=== PATIENT | male | born 1940 | race Caucasian/White ===

== ENCOUNTER 2016-07-10 11:26 | Emergency (ER) | payer OTHER, BC ==
[~2016-07-10] VITALS: Ht 167.6 cm; Wt 88.6 kg
[~2016-07-10 11:26] MED LIST: Aspirin E.C. PO; Biotin PO; Calcium Carbonate,Ca PO; Cranberry Extract PO; Diovan PO; Flexeril PO; Omega III EPA + DHA PO; Red Yeast Rice PO; Theragran PO; Vicodin,Norco 5/325 PO; Vitamin B Complex PO; Zinc Gluconate PO
[2016-07-10 12:35] LABS: EOSINOPHIL (%) 0.8 % (0-5); EOSINOPHIL COUNT 0.1 K/uL (0-0.3); HEMATOCRIT 35.3 % (38.0-50.0); IMMATURE GRANULOCYTE (%) 0.6 % (0.0-0.7); IMMATURE GRANULOCYTE COUNT 0.1 K/uL; INSTRUMENT ABS NEUTROPHIL CT 7.4 K/uL; LYMPHOCYTE COUNT 1.2 K/uL (1.0-2.8); MCH 30.8 PG (29.0-34.0); MCV 90.5 FL (86-99); MEAN PLAT.VOLUME 8.4 uM^3 (9.0-12.4); MONOCYTE COUNT 0.2 K/uL (0-0.8); NEUTROPHIL COUNT 7.4 K/uL (1.8-6.4); PLATELET COUNT 260 K/uL (156-360); RBC DIS.WIDTH-CV 13.6 % (11.8-14.6); RBC DIS.WIDTH-SD 45.5 % (39-53); WHITE BLOOD COUNT 8.9 K/uL (4.1-10.2)
[2016-07-10 12:44] LABS: CHLORIDE 105 mEq/L (99-109); POTASSIUM 4.7 mEq/L (3.7-5.4); SODIUM 134 mEq/L (136-147)
[2016-07-10 12:45] LABS: GLUCOSE 95 mg/dL (70-99)
[2016-07-10 12:47] LABS: ANION GAP 6 MEQ/L (2-14)
[2016-07-10 12:49] LABS: GFR ESTIMATE (CALCULATED) > 59 mL/min/
[2016-07-10 12:50] LABS: UREA NITROGEN (BUN) 18 mg/dL (9-23)
[2016-07-10 12:56] LABS: TROP-I INTERPRETATION NEGATIVE; TROPONIN-I < 0.01 ng/mL (0.0-0.30)
[2016-07-10 13:38] LABS: ADD MIUA? YES; BILIRUBIN NEGATIVE; BLOOD NEGATIVE; COLOR AMBER ((YELLOW)); GLUCOSE (STRIP) NEGATIVE; KETONES NEGATIVE; LEUKOCYTES NEGATIVE; NITRITE NEGATIVE; PROTEIN (STRIP) NEGATIVE; SPECIFIC GRAVITY 1.016 (1.000-1.030)
[2016-07-10 14:00] LABS: BACTERIA NONE SEEN /HPF; EPITHELIAL CELLS NONE SEEN /HPF; HYALINE CASTS 0-5 /LPF; MUCUS TRACE /LPF; RED BLOOD CELLS 0-5 /HPF (0-5); UCUL ADDED? NO; WHITE BLOOD CELLS 0-5 /HPF (0-5)
[2016-07-10 14:45] VITALS: BP 138/79
== END 2016-07-10 14:46 | disposition home or self-care (01) ==
LOC: EME 11:26
PROVIDERS: Emergency Medicine
DX: R55 Syncope and collapse (principal); T40.4X5A Adverse effect of other synthetic narcotics, initial encounter; C34.90 Malignant neoplasm of unspecified part of unspecified bronchus or lung; I10 Essential (primary) hypertension; Z87.891 Personal history of nicotine dependence
CPT/HCPCS: 70450; 71020; 80048; 81003; 84484; 85025; 93005; 99281; 99285; J7030

== ENCOUNTER 2016-10-04 07:13 | Inpatient (IN) | payer OTHER, BC ==
[~2016-10-04] VITALS: Ht 170.2 cm; Wt 82.2 kg
[~2016-10-04 07:13] MED LIST changes: +ASPIR-LOW81 MG PO; -Aspirin E.C. PO; +B COMPLEX #11 EACH PO; +CALCIUM 600 +1 EA13 PO; +CRANBERRY500 M2 PO; -Calcium Carbonate,Ca PO; -Cranberry Extract PO; +MULTI VITAMIN1 EACH PO; +OMEGA III EPA1000 MG PO; -Omega III EPA + DHA PO; -Theragran PO; -Vitamin B Complex PO; +ZINC50 M1 PO; -Zinc Gluconate PO
[2016-10-04 07:56] LABS: HEMATOCRIT 27.5 % (38.0-50.0); MCH 32.9 PG (29.0-34.0); MCHC 34.5 G/DL (30.0-36.0); MCV 95.2 FL (86-99); MEAN PLAT.VOLUME 8.9 uM^3 (9.0-12.4); PLATELET COUNT 162 K/uL (156-360); RBC DIS.WIDTH-CV 17.6 % (11.8-14.6); RBC DIS.WIDTH-SD 61.4 % (39-53); RED BLOOD COUNT 2.89 M/uL (4.00-5.50); WHITE BLOOD COUNT 1.6 K/uL (4.1-10.2)
[2016-10-04 07:58] LABS: CHLORIDE 99 mEq/L (99-109); POTASSIUM 4.9 mEq/L (3.7-5.4); SODIUM 130 mEq/L (136-147)
[2016-10-04 08:01] LABS: GLUCOSE 95 mg/dL (70-99)
[2016-10-04 08:02] LABS: ANION GAP 8 MEQ/L (2-14)
[2016-10-04 08:03] LABS: TOTAL BILIRUBIN 1.4 mg/dL (0.0-1.0)
[2016-10-04 08:04] LABS: ALKALINE PHOSPHATASE 68 IU/L (3-129); GFR ESTIMATE (CALCULATED) > 59 mL/min/
[2016-10-04 08:06] LABS: UREA NITROGEN (BUN) 21 mg/dL (9-23)
[2016-10-04 08:08] LABS: LIPASE 16 U/L (1.0-51.0)
[2016-10-04 10:36] LABS: ADD MIUA? NO; BILIRUBIN NEGATIVE; BLOOD NEGATIVE; COLOR YELLOW ((YELLOW)); GLUCOSE (STRIP) NEGATIVE; KETONES NEGATIVE; LEUKOCYTES NEGATIVE; NITRITE NEGATIVE; PROTEIN (STRIP) NEGATIVE; SPECIFIC GRAVITY 1.034 (1.000-1.030)
[2016-10-04 11:47] LABS: ABS NEUTROPHIL COUNT 0.7; ANISOCYTOSIS 1+; ATYPICAL LYMPHOCYTE 1.8 %; BAND NEUTROPHILS 4.4 % (0-8.0); EOSINOPHIL ABS CT 0; EOSINOPHILS 1.8 % (0-5.0); INSTRUMENT ABS NEUTROPHIL CT 0.6 K/uL; LYMPHOCYTES 45.1 % (15.0-45.0); PLAT.SUFFICIENCY ADEQUATE; POIKILOCYTOSIS 1+; SEG.NEUTROPHILS 40.7 % (46.0-76.0); SMUDGE CELLS 20.4; TEAR DROP CELLS 1+
[2016-10-04] MEDS ORDERED: NORVASC5 MG PO (11:48)
[2016-10-04] MEDS ORDERED: FOLIC ACID1 MG PO (11:49)
[2016-10-04] MEDS ORDERED: ONDANSETRON HCL8 MG PO (11:50)
[2016-10-04] MEDS ORDERED: SPIRIVA1 INHALATI IH (11:50)
[2016-10-04] MEDS ORDERED: BENZONATATE100 MG PO (11:50)
[2016-10-04] MEDS ORDERED: DEXAMETHASONE4 MG PO (11:52)
[2016-10-04] MEDS ORDERED: Chemo (11:54)
[2016-10-04 12:51] VITALS: BP 111/61
[2016-10-04 15:18] VITALS: BP 151/71
[2016-10-04 18:40] VITALS: BP 117/60
[2016-10-04 18:56] LABS: ANION GAP 9 MEQ/L (2-14); CHLORIDE 103 MEQ/L (99-109); GFR ESTIMATE (CALCULATED) > 59 mL/min/; GLUCOSE 97 mg/dL (70-99); POTASSIUM 4.1 MEQ/L (3.7-5.4); SAMPLE HEMOLYSIS CHECK 0; SAMPLE ICTERIC CHECK 0; SAMPLE LIPEMIA CHECK 0; SODIUM 130 MEQ/L (136-147); UREA NITROGEN (BUN) 18 mg/dL (9-23)
[2016-10-05] VITALS (8 sets, daily range): BP systolic 87–150; BP diastolic 50–72
[2016-10-05 08:24] LABS: HEMATOCRIT 21.2 % (38.0-50.0); MCH 34.9 PG (29.0-34.0); MCHC 35.8 G/DL (30.0-36.0); MCV 97.2 FL (86-99); RBC DIS.WIDTH-CV 17.8 % (11.8-14.6); RBC DIS.WIDTH-SD 63.6 % (39-53); RED BLOOD COUNT 2.18 M/uL (4.00-5.50)
[2016-10-05 08:55] LABS: ABS NEUTROPHIL COUNT 0.5; ANISOCYTOSIS 1+; BAND NEUTROPHILS 2.7 % (0-8.0); EOSINOPHIL ABS CT 0; EOSINOPHILS 1.8 % (0-5.0); INSTRUMENT ABS NEUTROPHIL CT 0.3 K/uL; LYMPHOCYTES 41.1 % (15.0-45.0); MEAN PLAT.VOLUME 8.6 uM^3 (9.0-12.4); MICROCYTOSIS 1+; PLAT.SUFFICIENCY DECREASED; POIKILOCYTOSIS 1+; SEG.NEUTROPHILS 48.2 % (46.0-76.0); TEAR DROP CELLS 1+
[2016-10-05 09:16] LABS: ALKALINE PHOSPHATASE 43 IU/L (3-129); ANION GAP 6 MEQ/L (2-14); CHLORIDE 106 MEQ/L (99-109); GFR ESTIMATE (CALCULATED) > 59 mL/min/; GLUCOSE 81 mg/dL (70-99); LIPASE 22 U/L (1.0-51.0); SAMPLE HEMOLYSIS CHECK 0; SAMPLE ICTERIC CHECK 0; SAMPLE LIPEMIA CHECK 0; SODIUM 133 MEQ/L (136-147); TOTAL BILIRUBIN 0.7 MG/DL (0.0-1.0); UREA NITROGEN (BUN) 13 mg/dL (9-23)
[2016-10-05 09:27] LABS: PLATELET COUNT 100 K/uL (156-360)
[2016-10-05 12:36] LABS: INFLUENZA A VIRAL ANTIGEN NEGATIVE; INFLUENZA B VIRAL ANTIGEN NEGATIVE
[2016-10-06] VITALS (14 sets, daily range): BP systolic 105–142; BP diastolic 55–77
[2016-10-06 06:39] LABS: HEMATOCRIT 20.2 % (38.0-50.0); MCH 33.2 PG (29.0-34.0); MCHC 34.2 G/DL (30.0-36.0); MCV 97.1 FL (86-99); RBC DIS.WIDTH-CV 17.7 % (11.8-14.6); RBC DIS.WIDTH-SD 62.5 % (39-53); RED BLOOD COUNT 2.08 M/uL (4.00-5.50)
[2016-10-06 06:41] LABS: WHITE BLOOD COUNT 1.1 K/uL (4.1-10.2)
[2016-10-06 07:20] LABS: ANION GAP 7 MEQ/L (2-14); CHLORIDE 110 MEQ/L (99-109); GFR ESTIMATE (CALCULATED) > 59 mL/min/; GLUCOSE 80 mg/dL (70-99); POTASSIUM 3.7 MEQ/L (3.7-5.4); SAMPLE HEMOLYSIS CHECK 0; SAMPLE ICTERIC CHECK 0; SAMPLE LIPEMIA CHECK 0; SODIUM 137 MEQ/L (136-147); UREA NITROGEN (BUN) 8 mg/dL (9-23)
[2016-10-06 07:36] LABS: ABS NEUTROPHIL COUNT 0.6; ANISOCYTOSIS 1+; ATYPICAL LYMPHOCYTE 1.8 %; BAND NEUTROPHILS 0.9 % (0-8.0); BASOPHILS 1.8 %; EOSINOPHIL ABS CT 0; INSTRUMENT ABS NEUTROPHIL CT 0.6 K/uL; LYMPHOCYTES 27.7 % (15.0-45.0); MEAN PLAT.VOLUME 8.9 uM^3 (9.0-12.4); PLAT.SUFFICIENCY DECREASED; PLATELET COUNT 83 K/uL (156-360); POIKILOCYTOSIS 1+; SMUDGE CELLS 28.6
[2016-10-07] VITALS (9 sets, daily range): BP systolic 117–144; BP diastolic 64–92
[2016-10-07 09:40] LABS: HEMATOCRIT 22.4 % (38.0-50.0); MCH 33.6 PG (29.0-34.0); MCHC 35.3 G/DL (30.0-36.0); MCV 95.3 FL (86-99); RBC DIS.WIDTH-CV 18.6 % (11.8-14.6); RBC DIS.WIDTH-SD 64.4 % (39-53); RED BLOOD COUNT 2.35 M/uL (4.00-5.50); WHITE BLOOD COUNT 3.9 K/uL (4.1-10.2)
[2016-10-07 10:07] LABS: ANION GAP 7 MEQ/L (2-14); CHLORIDE 109 MEQ/L (99-109); GFR ESTIMATE (CALCULATED) > 59 mL/min/; GLUCOSE 80 mg/dL (70-99); POTASSIUM 3.8 MEQ/L (3.7-5.4); SAMPLE HEMOLYSIS CHECK 0; SAMPLE ICTERIC CHECK 0; SAMPLE LIPEMIA CHECK 0; SODIUM 134 MEQ/L (136-147); UREA NITROGEN (BUN) 8 mg/dL (9-23)
[2016-10-07 10:43] LABS: C DIFF TOXIN POSITIVE (NEGATIVE)
[2016-10-07 10:46] LABS: PROBE CHECK PASS
[2016-10-07 10:47] LABS: ABS NEUTROPHIL COUNT 3.5; ANISOCYTOSIS 1+; ATYPICAL LYMPHOCYTE 0.9 %; BAND NEUTROPHILS 14.3 % (0-8.0); BASOPHILS 0.9 %; EOSINOPHIL ABS CT 0; INSTRUMENT ABS NEUTROPHIL CT 2.8 K/uL; MEAN PLAT.VOLUME 10.1 uM^3 (9.0-12.4); PLAT.SUFFICIENCY DECREASED; POIKILOCYTOSIS 1+; SMUDGE CELLS 17.9; TEAR DROP CELLS 1+
[2016-10-07 11:02] LABS: PLATELET COUNT 53 K/uL (156-360)
[2016-10-07 11:03] LABS: LYMPHOCYTES 6.2 % (15.0-45.0)
[2016-10-08] VITALS (15 sets, daily range): BP systolic 119–155; BP diastolic 64–80
[2016-10-08 06:59] LABS: MAGNESIUM 1.3 mg/dl (1.3-2.7)
[2016-10-08 08:12] LABS: HEMATOCRIT 19.9 % (38.0-50.0); MCH 34.1 PG (29.0-34.0); MCHC 35.7 G/DL (30.0-36.0); MCV 95.7 FL (86-99); RBC DIS.WIDTH-CV 18.9 % (11.8-14.6); RBC DIS.WIDTH-SD 67.3 % (39-53); RED BLOOD COUNT 2.08 M/uL (4.00-5.50); WHITE BLOOD COUNT 5.3 K/uL (4.1-10.2)
[2016-10-08 08:25] LABS: ANION GAP 6 MEQ/L (2-14); CHLORIDE 111 MEQ/L (99-109); GFR ESTIMATE (CALCULATED) > 59 mL/min/; GLUCOSE 81 mg/dL (70-99); POTASSIUM 3.9 MEQ/L (3.7-5.4); SODIUM 137 MEQ/L (136-147); UREA NITROGEN (BUN) 9 mg/dL (9-23)
[2016-10-08 08:40] LABS: IMM.PLATELET FRACTION 2.8 (1-7); PLAT.SUFFICIENCY DECREASED; PLATELET COUNT 39 K/uL (156-360)
[2016-10-09 03:42] VITALS: BP 138/73
[2016-10-09 08:00] VITALS: BP 114/68
[2016-10-09 09:00] LABS: HEMATOCRIT 25.7 % (38.0-50.0); MCH 31.5 PG (29.0-34.0); MCHC 33.5 G/DL (30.0-36.0); MCV 94.1 FL (86-99); RBC DIS.WIDTH-CV 18.3 % (11.8-14.6); RBC DIS.WIDTH-SD 61.6 % (39-53); WHITE BLOOD COUNT 3.5 K/uL (4.1-10.2)
[2016-10-09 09:01] LABS: RED BLOOD COUNT 2.73 M/uL (4.00-5.50)
[2016-10-09 09:11] LABS: ANION GAP 5 MEQ/L (2-14); CHLORIDE 113 MEQ/L (99-109); GFR ESTIMATE (CALCULATED) > 59 mL/min/; GLUCOSE 91 mg/dL (70-99); MAGNESIUM 1.4 mg/dl (1.3-2.7); POTASSIUM 4.2 MEQ/L (3.7-5.4); SAMPLE HEMOLYSIS CHECK 0; SAMPLE ICTERIC CHECK 0; SAMPLE LIPEMIA CHECK 0; SODIUM 140 MEQ/L (136-147); UREA NITROGEN (BUN) 9 mg/dL (9-23)
[2016-10-09 09:17] LABS: ABS NEUTROPHIL COUNT 2.8; ANISOCYTOSIS 1+; ATYPICAL LYMPHOCYTE 0.9 %; BAND NEUTROPHILS 4.3 % (0-8.0); EOSINOPHIL ABS CT 0; IMM.PLATELET FRACTION 2.3 (1-7); INSTRUMENT ABS NEUTROPHIL CT 2.2 K/uL; LYMPHOCYTES 11.3 % (15.0-45.0); MACROCYTES 1+; MEAN PLAT.VOLUME 9.7 uM^3 (9.0-12.4); OVALOCYTES 1+; PLATELET COUNT 30 K/uL (156-360); POIKILOCYTOSIS 1+; SEG.NEUTROPHILS 75.7 % (46.0-76.0); SPHEROCYTES 1+
[2016-10-09 09:20] LABS: PLAT.SUFFICIENCY VERY DECREASED
[2016-10-09 11:02] VITALS: BP 132/72
[2016-10-09 12:18] LABS: INTERNAL CONTROL VALID? YES
[2016-10-09 15:09] VITALS: BP 122/76
[2016-10-10] VITALS: BP 130/70
[2016-10-10 06:32] LABS: HEMATOCRIT 24.3 % (38.0-50.0); MCH 32.6 PG (29.0-34.0); MCV 93.1 FL (86-99); RBC DIS.WIDTH-SD 61.2 % (39-53); RED BLOOD COUNT 2.61 M/uL (4.00-5.50); WHITE BLOOD COUNT 2.5 K/uL (4.1-10.2)
[2016-10-10 06:39] LABS: ANION GAP 6 MEQ/L (2-14); CHLORIDE 113 MEQ/L (99-109); GFR ESTIMATE (CALCULATED) > 59 mL/min/; GLUCOSE 82 mg/dL (70-99); POTASSIUM 4.5 MEQ/L (3.7-5.4); SAMPLE HEMOLYSIS CHECK 0; SAMPLE ICTERIC CHECK 0; SAMPLE LIPEMIA CHECK 0; SODIUM 140 MEQ/L (136-147); UREA NITROGEN (BUN) 10 mg/dL (9-23)
[2016-10-10 07:06] LABS: EOSINOPHIL (%) 0 % (0-5); IMM.PLATELET FRACTION 3.2 (1-7); IMMATURE GRANULOCYTE (%) 1.2 % (0.0-0.7); INSTRUMENT ABS NEUTROPHIL CT 1.2 K/uL; LYMPHOCYTE COUNT 0.8 K/uL (1.0-2.8); MEAN PLAT.VOLUME 11.4 uM^3 (9.0-12.4); MONOCYTE (%) 19.1 % (3-12); MONOCYTE COUNT 0.5 K/uL (0-0.8); NEUTROPHIL (%) 49.4 % (45-76); NEUTROPHIL COUNT 1.2 K/uL (1.8-6.4); PLATELET COUNT 21 K/uL (156-360)
[2016-10-10 08:17] VITALS: BP 140/92
[2016-10-10] MEDS ORDERED: FLAGYL500 MG PO (12:54)
== END 2016-10-10 13:50 | disposition home or self-care (01) | DRG 371 ==
LOC: EME 07:13 → EDOF 11:14 → 5SOUTH 11:14 → ENRESERV 11:17 → 5SOUTH 11:59
PROVIDERS: Hospitalist; Internal Medicine; Nurse Practitioner Family
PROC: 30233P1 Transfusion of Nonautologous Frozen Red Cells into Peripheral Vein, Percutaneous Approach (ICD-10-PCS; principal; 2016-10-08)
DX: A04.7 Enterocolitis due to Clostridium difficile (principal); D61.810 Antineoplastic chemotherapy induced pancytopenia; D70.9 Neutropenia, unspecified; E87.1 Hypo-osmolality and hyponatremia; D61.818 Other pancytopenia; E83.51 Hypocalcemia; E86.0 Dehydration; I95.1 Orthostatic hypotension; J02.9 Acute pharyngitis, unspecified; C34.90 Malignant neoplasm of unspecified part of unspecified bronchus or lung; K57.32 Diverticulitis of large intestine without perforation or abscess without bleeding; E83.39 Other disorders of phosphorus metabolism; K12.31 Oral mucositis (ulcerative) due to antineoplastic therapy; T45.1X5A Adverse effect of antineoplastic and immunosuppressive drugs, initial encounter; I10 Essential (primary) hypertension; Z92.21 Personal history of antineoplastic chemotherapy; Z92.3 Personal history of irradiation; Z85.118 Personal history of other malignant neoplasm of bronchus and lung; Z87.891 Personal history of nicotine dependence
CPT/HCPCS: 74177; 80048; 80048 91; 80053; 81003; 82272; 83605; 83690; 83735; 84100; 85025; 85027; 86900; 86901; 86920; 87040; 87081; 87493; 87502; 87651 90; 94640; 94640 76; 97530 GO; 99281; 99285; J0610; J0744; J1447; J1885; J2270; J2405; J2543; J7030; J7040; J7050; P9016; S0030

== ENCOUNTER 2016-11-08 11:07 | Observation (INO) | payer OTHER, BC ==
[~2016-11-08] VITALS: Ht 167.6 cm; Wt 81.5 kg
[~2016-11-08 11:07] MED LIST changes: +BENZONATATE100 MG PO; +Chemo; +DEXAMETHASONE4 MG PO; +FLAGYL500 MG PO; +FOLIC ACID1 MG PO; +NORVASC5 MG PO; +ONDANSETRON HCL8 MG PO; +SPIRIVA1 INHALATI IH
[2016-11-08 13:34] LABS: HEMATOCRIT 35.1 % (38.0-50.0); MCH 33.5 PG (29.0-34.0); MCHC 33.6 G/DL (30.0-36.0); MEAN PLAT.VOLUME 10.1 uM^3 (9.0-12.4); RBC DIS.WIDTH-CV 16.9 % (11.8-14.6); RBC DIS.WIDTH-SD 61.8 % (39-53); WHITE BLOOD COUNT 5.4 K/uL (4.1-10.2)
[2016-11-08 13:36] LABS: CHLORIDE 102 mEq/L (99-109); POTASSIUM 5.1 mEq/L (3.7-5.4); SODIUM 132 mEq/L (136-147)
[2016-11-08 13:37] LABS: GLUCOSE 90 mg/dL (70-99); MCV 99.7 FL (86-99); PLATELET COUNT 132 K/uL (156-360); RED BLOOD COUNT 3.52 M/uL (4.00-5.50)
[2016-11-08 13:39] LABS: ANION GAP 8 MEQ/L (2-14)
[2016-11-08 13:41] LABS: GFR ESTIMATE (CALCULATED) > 59 mL/min/
[2016-11-08 13:42] LABS: UREA NITROGEN (BUN) 21 mg/dL (9-23)
[2016-11-08 13:47] LABS: TROP-I INTERPRETATION NEGATIVE; TROPONIN-I < 0.01 ng/mL (0.0-0.30)
[2016-11-08 14:46] LABS: ABS NEUTROPHIL COUNT 3.9; ANISOCYTOSIS 1+; ATYPICAL LYMPHOCYTE 2.6 %; EOSINOPHIL ABS CT 0.1; EOSINOPHILS 1.8 % (0-5.0); INSTRUMENT ABS NEUTROPHIL CT 4.3 K/uL; LYMPHOCYTES 13.2 % (15.0-45.0); METAMYELOCYTES 0.9 %; OVALOCYTES 1+; PLAT.SUFFICIENCY DECREASED; SEG.NEUTROPHILS 71.9 % (46.0-76.0); TEAR DROP CELLS 1+
[2016-11-08] MEDS ORDERED: LORATADINE10 M2 PO (15:02)
[2016-11-08] MEDS ORDERED: CHELATED IRON PO (15:04)
[2016-11-08 16:41] VITALS: BP 145/68
[2016-11-08 21:00] VITALS: BP 181/71
[2016-11-09 00:05] VITALS: BP 101/57
[2016-11-09 04:11] VITALS: BP 129/67
[2016-11-09 06:15] LABS: ALKALINE PHOSPHATASE 100 IU/L (3-129); ANION GAP 5 MEQ/L (2-14); CHLORIDE 104 MEQ/L (99-109); GFR ESTIMATE (CALCULATED) > 59 mL/min/; GLUCOSE 82 mg/dL (70-99); POTASSIUM 4.8 MEQ/L (3.7-5.4); SAMPLE HEMOLYSIS CHECK 0; SAMPLE ICTERIC CHECK 0; SAMPLE LIPEMIA CHECK 0; SODIUM 132 MEQ/L (136-147); UREA NITROGEN (BUN) 18 mg/dL (9-23)
[2016-11-09 06:37] LABS: HEMATOCRIT 30.1 % (38.0-50.0); MCH 32.8 PG (29.0-34.0); MCHC 32.2 G/DL (30.0-36.0); MCV 101.7 FL (86-99); RBC DIS.WIDTH-CV 16.7 % (11.8-14.6); RBC DIS.WIDTH-SD 62.7 % (39-53); RED BLOOD COUNT 2.96 M/uL (4.00-5.50); WHITE BLOOD COUNT 3.5 K/uL (4.1-10.2)
[2016-11-09 06:56] LABS: MEAN PLAT.VOLUME 9.8 uM^3 (9.0-12.4); PLAT.SUFFICIENCY DECREASED
[2016-11-09 06:57] LABS: PLATELET COUNT 77 K/uL (156-360)
[2016-11-09 07:25] VITALS: BP 121/60
[2016-11-09 09:17] VITALS: BP 121/66; BP 129/71; BP 130/66
[2016-11-09 12:00] VITALS: BP 136/79
== END 2016-11-09 14:47 | disposition home or self-care (01) ==
LOC: EME 11:07 → ENRESERV 14:27 → EDOF 14:30 → 5WEST 14:30 → ENRESERV 15:01 → 5WEST 16:27
PROVIDERS: Emergency Medicine; Hospitalist
DX: I95.1 Orthostatic hypotension (principal); R53.1 Weakness; R11.2 Nausea with vomiting, unspecified; E87.1 Hypo-osmolality and hyponatremia; C34.90 Malignant neoplasm of unspecified part of unspecified bronchus or lung; Z92.21 Personal history of antineoplastic chemotherapy; R19.7 Diarrhea, unspecified; Z98.1 Arthrodesis status
CPT/HCPCS: 70450; 71010; 74176; 80048; 80053; 84484; 85025; 85027; 87493; 93005; 99281; 99285; G0378; J7030

== ENCOUNTER 2017-03-28 10:29 | Observation (INO) | payer OTHER, BC ==
[~2017-03-28] VITALS: Ht 167.6 cm; Wt 86.7 kg
[~2017-03-28 10:29] MED LIST changes: +CHELATED IRON PO; +LORATADINE10 M2 PO
[2017-03-28 11:30] LABS: BASOPHIL (%) 0.8 % (0-1); EOSINOPHIL (%) 0 % (0-5); HEMATOCRIT 37.6 % (38.0-50.0); HEMOGLOBIN 12.8 G/DL (12.5-16.6); IMMATURE GRANULOCYTE (%) 1.4 % (0.0-0.7); LYMPHOCYTE (%) 25.2 % (15-42); LYMPHOCYTE COUNT 1.3 K/uL (1.0-2.8); MCH 35.1 PG (29.0-34.0); MONOCYTE (%) 4.6 % (3-12); MONOCYTE COUNT 0.2 K/uL (0-0.8); NEUTROPHIL COUNT 3.4 K/uL (1.8-6.4); NRBC (%) 0.6 /100 WBC (0-0); PLATELET COUNT 103 K/uL (156-360); RBC DIS.WIDTH-CV 16.1 % (11.8-14.6); RBC DIS.WIDTH-SD 61.9 % (39-53); RED BLOOD COUNT 3.65 M/uL (4.00-5.50)
[2017-03-28 11:38] LABS: CHLORIDE 107 mEq/L (99-109); POTASSIUM 5.2 mEq/L (3.7-5.4); SODIUM 133 mEq/L (136-147)
[2017-03-28 11:40] LABS: GLUCOSE 73 mg/dL (70-99)
[2017-03-28 11:44] LABS: CREATININE 0.8 mg/dL (0.6-1.3); GFR ESTIMATE (CALCULATED) > 59 mL/min/ (58.99-99999)
[2017-03-28 11:45] LABS: UREA NITROGEN (BUN) 29 mg/dL (9-23)
[2017-03-28 14:04] LABS: C DIFF TOXIN NEGATIVE (NEGATIVE)
[2017-03-28] MEDS ORDERED: PREDNISONE10 MG PO (17:35)
[2017-03-28] MEDS ORDERED: BACTRIM,SEPT1 TABLE1 PO (17:39)
[2017-03-28] MEDS ORDERED: SPIRIVA1 INHALATI IH (17:52)
[2017-03-28] MEDS ORDERED: PRILOSEC20 MG PO (17:53)
[2017-03-28] MEDS ORDERED: XGEVA120 MG/1.7 SC (17:56)
[2017-03-28] MEDS ORDERED: ABRAXANE100 MG/20 IV (17:57)
[2017-03-28] MEDS ORDERED: ALBUTEROL PO (17:58)
[2017-03-28] MEDS ORDERED: AVASTIN400 MG/16 IV (18:00)
[2017-03-28 18:26] LABS: STOOL OCCULT BLD 1ST SPECIMEN NEGATIVE
[2017-03-28 22:30] VITALS: BP 124/68
[2017-03-29 00:03] VITALS: BP 131/74
[2017-03-29 04:38] VITALS: BP 119/64
[2017-03-29 07:03] LABS: HEMATOCRIT 31.6 % (38.0-50.0); MCH 34.5 PG (29.0-34.0); MCHC 33.5 G/DL (30.0-36.0); MCV 102.9 FL (86-99); PLATELET COUNT 86 K/uL (156-360); RBC DIS.WIDTH-CV 16.6 % (11.8-14.6); RBC DIS.WIDTH-SD 63.2 % (39-53); RED BLOOD COUNT 3.07 M/uL (4.00-5.50); WHITE BLOOD COUNT 4.1 K/uL (4.1-10.2)
[2017-03-29 07:05] LABS: HEMOGLOBIN 10.6 G/DL (12.5-16.6)
[2017-03-29 07:15] LABS: ALBUMIN 2.9 G/DL (3.2-4.8); ALKALINE PHOSPHATASE 49 IU/L (3-129); ALT (GPT) 18 IU/L (3-49); AST (GOT) 19 IU/L (2-34); CHLORIDE 107 MEQ/L (99-109); CREATININE 0.7 MG/DL (0.6-1.3); GFR ESTIMATE (CALCULATED) > 59 mL/min/ (58.99-99999); GLUCOSE 71 mg/dL (70-99); POTASSIUM 4.9 MEQ/L (3.7-5.4); SODIUM 135 MEQ/L (136-147); TOTAL BILIRUBIN 0.7 MG/DL (0.0-1.0); UREA NITROGEN (BUN) 21 mg/dL (9-23)
[2017-03-29 08:00] VITALS: BP 149/73
[2017-03-29 12:00] VITALS: BP 124/71
[2017-03-29 15:47] VITALS: BP 147/85
[2017-03-29 19:04] VITALS: BP 143/80
[2017-03-30 00:12] VITALS: BP 142/80
[2017-03-30 03:46] VITALS: BP 138/76
[2017-03-30 06:40] LABS: HEMATOCRIT 31.4 % (38.0-50.0); HEMOGLOBIN 11.1 G/DL (12.5-16.6); MCH 34.5 PG (29.0-34.0); MCHC 35.4 G/DL (30.0-36.0); NRBC (%) 0.4 /100 WBC (0-0); PLATELET COUNT 108 K/uL (156-360); RBC DIS.WIDTH-CV 15.5 % (11.8-14.6); RBC DIS.WIDTH-SD 55.1 % (39-53); RED BLOOD COUNT 3.22 M/uL (4.00-5.50); WHITE BLOOD COUNT 4.8 K/uL (4.1-10.2)
[2017-03-30 07:03] LABS: CHLORIDE 104 MEQ/L (99-109); CREATININE 0.6 MG/DL (0.6-1.3); GFR ESTIMATE (CALCULATED) > 59 mL/min/ (58.99-99999); POTASSIUM 4.6 MEQ/L (3.7-5.4); SODIUM 133 MEQ/L (136-147); UREA NITROGEN (BUN) 14 mg/dL (9-23)
[2017-03-30 07:09] LABS: GLUCOSE 93 mg/dL (70-99)
[2017-03-30 07:21] VITALS: BP 124/72
[2017-03-30 07:25] LABS: MCV 97.5 FL (86-99)
[2017-03-30 11:43] VITALS: BP 136/84
[2017-03-30] MEDS ORDERED: BACITRACIN28.4 GM TP (11:53)
== END 2017-03-30 13:25 | disposition home or self-care (01) ==
LOC: EME 10:29 → 2EAST 16:45 → EDOF 16:45 → ENRESERV 16:51 → 2EAST 21:57 → EDPENDDISTM 03-30 → ENPENDDIS 03-30 → EDPENDDISDT 03-30 → 2EAST 03-30 13:25
PROVIDERS: Emergency Medicine; Internal Medicine
DX: R11.2 Nausea with vomiting, unspecified (principal); R19.7 Diarrhea, unspecified; E86.0 Dehydration; E87.1 Hypo-osmolality and hyponatremia; I95.1 Orthostatic hypotension; D69.6 Thrombocytopenia, unspecified; J44.9 Chronic obstructive pulmonary disease, unspecified; C34.90 Malignant neoplasm of unspecified part of unspecified bronchus or lung; Z92.21 Personal history of antineoplastic chemotherapy; Z79.52 Long term (current) use of systemic steroids; Z91.81 History of falling; Z87.891 Personal history of nicotine dependence; Z80.0 Family history of malignant neoplasm of digestive organs; Z82.49 Family history of ischemic heart disease and other diseases of the circulatory system; Z88.5 Allergy status to narcotic agent
CPT/HCPCS: 80048; 80053; 82272; 85025; 85027; 87493; 94640; 94640 76; 94799; 97530 GP; 99202; G0378; G8978 GP CJ; G8979 GP CH; G8980 CJ; G8987 GO CJ; G8988 CI; G8989 CJ; J1650; J2405; J7030; J7512